=== PATIENT | male | born 1970 | race Caucasian/White ===

== ENCOUNTER → 2016-09-07 | Outpatient (CLI) | payer BC ==
--- NOTE | 2016-09-07 12:11 | RADIOLOGY REPORT (SQ) ---
EXAM DESCRIPTION: MRI HEAD COMBO COMPLETED DATE/TIME: 09/07/2016 11:01 am REASON FOR STUDY: HEADACHE (R51), RIGHT HEARING LOSS (H91.91) R51 HEADACHE H91.91 UNSPECIFIED HEAR ING LOSS, RIGHT EAR COMPARISON: None. TECHNIQUE: Multiplanar imaging includes noncontrasted T1, T2, FLAIR, diffusion with ADC map and post gadolinium contrast T1 sequences. Images stored on PACS. Additional thin section axial T2 and additional thin section axial T1 pre and post-contrast images th rough the internal auditory canals and inner ear structures. Additional coronal thin section imaging through the internal auditory canals and inner ear structures postcontrast. CONTRAST TYPE AND DOSE: 20 mL Multihance. RENAL FUNCTION: GFR > 60. LIMITATIONS: None. FINDINGS: Throughout the field of view, there is diffuse dural thickening and enhancement, over the cerebral convexities, falx and tentorium, posterior fossa, and upper cervical region. Dural thickeni ng and enhancement extends into the bilateral internal auditory canal anterior cristina, and along the s uperficial aspect of Meckel's cave and the bilateral cavernous sinuses. This is abnormal but nonspec ific. Differential is [employer] lymphoma, metastatic disease, infectious etiologies (neurosyphilis or TB), inflammatory etiologies (Manuel's granulomatosis, polyarteritis, rheumatoid), neurosarcoidosis, or idiopathic hypertrophic pachymeningitis. This finding was discussed with Dr. Ch, 1130 hours 09/07/2016. ANATOMY: No congenital anomalies. Normal vascular flow voids. Pituitary fossa normal. CSF SPACES: Normal in size and contour. No hemorrhage. No hydrocephalus CEREBRUM: Sulci and gyri normal in size and contour. Normal white matter signal on FLAIR imaging. No evidence of hemorrhage, mass, or extraaxial fluid collection. No abnormal brain parenchymal enhanceme nt post contrast. Diffuse dural thickening and enhancement as above. POSTERIOR FOSSA: No brain parenchymal signal alteration. No acute hemorrhage. No brain parenchymal ed padmini, masses, or mass effect. There is dural thickening and enhancement which extends into the anteri or aspect of the right and left internal auditory canal, best shown on axial thin-section images 5 an d 6. No definite abnormal intrinsic enhancement of the 7th/ 8th nerves or inner ear structures. DIFFUSION IMAGING: Negative for acute or subacute infarction. ORBITS: No masses. Globes normal. PARANASAL SINUSES: No fluid levels. Mucosa normal. OTHER: No other significant finding. IMPRESSION: Diffuse dural thickening and enhancement, findings called to the patient's primary care doctor. Differential as above TECHNICAL DOCUMENTATION: JOB ID: [id number] [employer] [place]- All Rights Reserved
== END ==
LOC: RAD 09:22
PROVIDERS: ATTEND Internal Medicine
DX: R51 Headache (principal); H91.91 Unspecified hearing loss, right ear
CPT/HCPCS: 82565; 70553; A9577